=== PATIENT | male | born 1970 | race Caucasian/White ===

== ENCOUNTER 2018-05-24 15:32 | Inpatient (IN) | payer OTHER ==
[2018-05-24] MEDS ORDERED: ONDANSETRON 4 MG/2 ML VIAL IVP ONE (15:38)
[2018-05-24] MEDS ORDERED: NS 1,000 ML IV ONE (15:38)
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
[2018-05-24] MEDS ORDERED: IOHEXOL 300 mgI/ML (OMNIPAQUE) 150 ML BTL IV ONE (15:48)
[2018-05-24] MEDS ORDERED: TRANEXAMIC ACID 1,000 MG/10 ML VIAL ONE (16:17)
[2018-05-24] MEDS ORDERED: NS 100 ML BAG IV ONE (16:18)
[2018-05-24] MEDS ORDERED: TRANEXAMIC ACID 1,000 MG in NS 500 ML IV ONE (16:19)
[2018-05-24] MEDS ORDERED: TRANEXAMIC ACID 1,000 MG in NS 100 ML IV ONE (16:19)
[2018-05-24] MEDS ORDERED: levETIRAcetam 1000MG/NACL 100 ML IV ONE (16:26)
[2018-05-24] MEDS ORDERED: HYDROmorphONE/DILAUDID 1 MG/ML INJ IVP ONE ×2 (16:26→16:56)
[2018-05-24 16:32] LABS: INR 1.15 (0.83-1.16); PROTIME(PATIENT) 14.9 SEC (12.0-15.0)
[2018-05-24 16:50] LABS: PLATELET COUNT 260 10^3/uL (150-400)
[2018-05-24] MEDS ORDERED: HYDROmorphONE/DILAUDID 1 MG/ML INJ ONE (16:56)
[2018-05-24] MEDS ORDERED: NALOXONE HCL 0.4 MG/ML INJ IVP PRN (17:26)
[2018-05-24] MEDS ORDERED: ONDANSETRON 4 MG/2 ML VIAL IVP PRN (17:26)
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
[2018-05-24] MEDS: NS 1,000 ML IV SCH (19:15)
[2018-05-24] MEDS ORDERED: LIDOCAINE 1% 300 MG/30 ML SDV ONE (19:50)
[2018-05-24] MEDS ORDERED: fentaNYL 100 MCG/2 ML INJ ONE (19:53)
[2018-05-24] MEDS ORDERED: LIDOCAINE 1% 300 MG/30 ML SDV MISC ONE (20:00)
[2018-05-24] MEDS: levETIRAcetam 500MG/NACL 100 ML IV SCH (20:12)
[2018-05-24] MEDS ORDERED: fentaNYL 100 MCG/2 ML INJ IVP ONE (20:30)
[2018-05-24] MEDS: lamoTRIgine 100 MG TAB PO SCH (21:03)
[2018-05-24] MEDS: CYCLOBENZAPRINE 10 MG TAB PO SCH (21:03)
[2018-05-24] MEDS: LITHIUM CARBONATE 300 MG CAP PO SCH (21:03)
--- NOTE | 2018-05-24 21:05 | GOP ---
[f rep st] OPERATIVE REPORT DATE OF OPERATION: 05/24/2018 SURGEON: Keshawn Diez MD STEEPING PRESS OPERATOR: None. ANESTHESIA: Local with IV sedation. PREOPERATIVE DIAGNOSIS: Worsening right-sided pneumothorax. POSTOPERATIVE DIAGNOSIS: Worsening right-sided pneumothorax. PROCEDURE PERFORMED: Right chest tube thoracostomy placement. FINDINGS: Successful placement and expansion of right lung, small expiratory air leak. SPECIMENS: None. ESTIMATED BLOOD LOSS: 5 cc. DESCRIPTION OF PROCEDURE: The patient was greeted in the intensive care unit. After explaining the risks, benefits, and alternatives, consent was signed. A World Health Organization time-out was then performed. His right chest was prepped and draped in typical sterile fashion. I commenced the proc edure by creating a field block using 1% lidocaine. After successful anesthetization, I made an inci ralph inferior to the nipple line. I dissected superiorly and entered the chest at the approximate 6t h intercostal space. Once I entered the chest, I did receive a large markham of air. The [address] [address] tube was then placed within this and tunneled apically. It was attached to the skin with an inter rupted silk suture. It was attached to the Pleur-Evac with appropriate tidaling and a moderate expir atory air leak. A sterile dressing was placed. The patient tolerated the procedure well without any complications. A postplacement chest film showed adequate placement with appropriate expansion of t he right lung. DRAINS: Zamymy-ehcxo-Nolcbu straight chest tube to the right chest. /[id number]/MODL
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
[2018-05-24] MEDS: HYDROmorphONE/DILAUDID 1 MG/ML INJ IVP PRN ×2 (21:19→23:31)
[2018-05-25] MEDS: HYDROmorphONE/DILAUDID 1 MG/ML INJ IVP PRN ×5 (02:58→21:09)
[2018-05-25] MEDS: NS 1,000 ML IV SCH ×2 (02:59→11:43)
[2018-05-25 03:14] LABS: PLATELET COUNT 181 10^3/uL (150-400)
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
[2018-05-25] MEDS: CYCLOBENZAPRINE 10 MG TAB PO SCH ×3 (07:51→21:51)
[2018-05-25] MEDS: levETIRAcetam 500MG/NACL 100 ML IV SCH (07:51)
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
[2018-05-25] MEDS ORDERED: HYDROmorphONE/DILAUDID 2 MG/ML INJ ONE ×2 (12:46→18:44)
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
[2018-05-25] MEDS ORDERED: IOHEXOL 300 mgI/ML (OMNIPAQUE) 150 ML BTL IV ONE (13:19)
[2018-05-25] MEDS: PROPRANOLOL HCL 20 MG TAB PO SCH (14:47)
[2018-05-25] MEDS ORDERED: ceFAZolin 2 GM/DEXTROSE 100 ML IV ONE (15:00)
[2018-05-25] MEDS ORDERED: EPINEPHrine 1 MG/ML INJ ONE (15:16)
[2018-05-25] MEDS ORDERED: BUPIVACAINE 0.25% 30 ML SDV ONE (15:16)
[2018-05-25] MEDS ORDERED: CHLORHEXIDINE GLUC HIBICLENS 118 ML BTL TP ONE (15:17)
[2018-05-25] MEDS ORDERED: THROMBIN (BOVINE) 5,000 UNIT VIAL TP ONE (15:17)
[2018-05-25] MEDS ORDERED: CITRATE DEXTROSE SOLN 500 ML BAG ONE (15:18)
[2018-05-25] MEDS ORDERED: fentaNYL 100 MCG/2 ML INJ ONE ×2 (15:18→16:37)
[2018-05-25] MEDS ORDERED: BACITRACIN 50,000 UNITS/10 ML SYR IRR ONE (15:22)
[2018-05-25] MEDS ORDERED: HYDROmorphONE/DILAUDID 1 MG/ML INJ IVP ONE (15:45)
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
[2018-05-25] MEDS ORDERED: PROPOFOL/EMULSION 500 MG/50 ML BOTTLE IV ONE ×2 (16:37→19:06)
[2018-05-25] MEDS ORDERED: REMIFENTANIL HCL 1 MG VIAL ONE ×2 (16:37→19:06)
[2018-05-25] MEDS ORDERED: ALBUMIN 5% 250 ML BOTTLE IV ONE (17:20)
[2018-05-25] MEDS ORDERED: PHENYLEPHRINE HCL 100 MCG/ML SYR ONE (17:27)
[2018-05-25] MEDS ORDERED: DOPamine/DEXTROSE 400 MG/250 ML BAG IV ONE (17:38)
--- NOTE | 2018-05-25 17:51 | PDANEPAE ---
ANE History of Present Illness 48 yo for spinal fusion t4-8 ANE Past Medical History - Cardiovascular History Hx Hypertension: No Hx Arrhythmias: No Hx Chest Pain: No Hx Coronary Artery / Peripheral Vascular Disease: No Hx CHF / Valvular Disease: No Hx Palpitations: No - Pulmonary History Hx COPD: No Hx Asthma/Reactive Airway Disease: No Hx Recent Upper Respiratory Infection: No Hx Oxygen in Use at Home: No Hx Sleep Apnea: No Sleep Apnea Screening Result - Last Documented: Negative Pulmonary History Comment: R PTX - Endocrine History Hx Diabetes: No ANE Review of Systems Review of Systems: - Exercise capacity METS (RN): 5 METS ANE Patient History - Allergies Allergies/Adverse Reactions: codeine Allergy (Verified 05/24/18 19:46) Other-Enter Comments - Home Medications Home Medications: [place] Carbonate [[place] Carbonate Cap 300 mg (*)] 900 mg PO HS 05/24/18 [ Last Taken Unknown] Propranolol HCl [Inderal 20mg (*)] 10 - 20 mg PO DAILY 05/24/18 [Last Taken Unknown] Propranolol HCl [Inderal 20mg (*)] 20 mg PO HS 05/24/18 [Last Taken Unknown] Ziprasidone HCl 80 mg PO HS 05/24/18 [Last Taken Unknown] lamOTRIGine [Lamotrigine] 300 mg PO HS 05/24/18 [Last Taken Unknown] - NPO status NPO Since - Liquids (Date): 05/25/18 NPO Since - Liquids (Time): 00:00 NPO Since - Solids (Date): 05/25/18 NPO Since - Solids (Time): 00:00 - Anes Hx Anes Hx: no prior problems - Smoking Hx Smoking Status: Never smoked - Alcohol Use Alcohol Use: None ANE Labs/Vital Signs - Labs Result Diagrams: 05/25/18 03:00 05/25/18 03:00 - Vital Signs Blood Pressure: 114/79 Heart Rate: 77 Respiratory Rate: 16 O2 Sat (%): 95 Height: 5 ft 8 in Weight: 76 kg ANE Physical Exam - Airway Neck exam: C-collar in place Mallampati Score: Class 2 Mouth exam: normal dental/mouth exam - Pulmonary Pulmonary: no respiratory distress - Cardiovascular Cardiovascular: regular rate and rhythym - ASA Status ASA Status: II ANE Anesthesia Plan Anesthesia Plan: general endotracheal anesthesia
[2018-05-25] MEDS ORDERED: ONDANSETRON 4 MG/2 ML VIAL ONE (19:10)
[2018-05-25] MEDS ORDERED: ONDANSETRON 4 MG/2 ML VIAL IVP PRN (19:28)
[2018-05-25] MEDS ORDERED: HYDROmorphONE/DILAUDID 2 MG/ML INJ IVP PRN (19:28)
[2018-05-25] MEDS ORDERED: fentaNYL 100 MCG/2 ML INJ IVP PRN (19:28)
[2018-05-25] MEDS ORDERED: NALOXONE HCL 0.4 MG/ML INJ IVP PRN (19:28)
--- NOTE | 2018-05-25 20:04 | POSTOPPROG ---
Post Op Note Date of Operation: 05/25/18 Surgeon: Gordon Young Clinical Nurse Occupational Medicine: JEANMARIE Tilley PAC Anesthesia: GET(General Endotracheal) Pre-op Diagnosis: T6 unstable fx Post-op Diagnosis: T6 unstable fx Indication: T6 unstable fx, thoracic stenosis Procedure: T4-T8 PSF with T6 laminectomy Inf/Abcess present in the surg proc area at time of surgery?: No EBL: 50-100 Drains: Adolfo GREY Addendum - Addendum .: S: posterior spine pain O: NAD A&Ox3 MAEX4 5/ and equal A/P 48y/o male s/p T4-T8 PSF with T 6 laminectomy -Advance diet as tolerated -Continue hard cervical collar, no thoracic brace needed -SACHIN x1 -Post op xrays pending -Optimize pain management -Please notify NS with any change in neuro/motor exam
[2018-05-25] MEDS: LR 1,000 ML IV SCH (20:40)
[2018-05-25] MEDS ORDERED: ZIPRASIDONE HCL 40 MG CAP PO SCH (21:00)
[2018-05-25] MEDS ORDERED: PROPRANOLOL HCL 20 MG TAB PO SCH (21:00)
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
[2018-05-25] MEDS: levETIRAcetam 500 MG TAB PO SCH (21:50)
[2018-05-25] MEDS: oxyCODONE IR 5 MG TAB PO PRN (21:50)
[2018-05-25] MEDS: lamoTRIgine 100 MG TAB PO SCH (21:50)
[2018-05-25] MEDS: ceFAZolin 2 GM/DEXTROSE 100 ML IV SCH (21:51)
[2018-05-25] MEDS: LITHIUM CARBONATE 300 MG CAP PO SCH (21:52)
[2018-05-26] MEDS: LR 1,000 ML IV SCH (00:58)
[2018-05-26 05:19] LABS: PLATELET COUNT 138 10^3/uL (150-400)
[2018-05-26] MEDS: ceFAZolin 2 GM/DEXTROSE 100 ML IV SCH (06:00)
[2018-05-26] MEDS: oxyCODONE IR 5 MG TAB PO PRN (07:51)
[2018-05-26] MEDS: levETIRAcetam 500 MG TAB PO SCH ×2 (07:55→20:03)
[2018-05-26] MEDS: CYCLOBENZAPRINE 10 MG TAB PO SCH ×3 (07:56→21:56)
[2018-05-26] MEDS: PROPRANOLOL HCL 20 MG TAB PO SCH ×2 (08:07→23:32)
[2018-05-26] MEDS ORDERED: METHOCARBAMOL 750 MG TAB PO PRN (08:31)
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
[2018-05-26] MEDS ORDERED: LIDOCAINE 4%/MENTHOL 1% PATCH TD SCH (10:30)
--- NOTE | 2018-05-26 10:57 | TRAUMAPNT ---
Trauma Tertiary Progress Note New Findings: He is sedated this AM and his states that this is how he presents before manic episodes. A divergent gaze was also nothed by his . He is slow in his response to questioning. Assessment/Plan: PAD#2/POD#1 Assessment: Neurologic - evaluation clouded by hx of marika (with hx pre-marika sedated presentation) and head injury. CT reviewed - no evidence of orbital wall fx. Discussed with Dr. Young. Will minimize narcotic and add lidoderm/tylenol/toradol. Will obtain F/U Head CT today. Neck- Continue Hard collar for C5,67 T1,2,3 fx. Chest - Will get f/u CXR in AM, Continue Chest tube (80 cc out last shift), Meds adjusted, IS only to 200cc Plan: adjust meds ( done) Fu Head CT Work on pulmonary toilet Psych to see re: manic depressive issues Subjective: poorly interactive at this point Objective: Vital Signs Temp Pulse Resp BP Pulse Ox 36.9 C 63 13 118/64 100 05/25/18 23:52 05/26/18 09:00 05/26/18 09:00 05/26/18 09:00 05/26/18 09:00 Laboratory Results 05/26/18 04:15 05/26/18 04:15 05/25/18 05/26/18 05/27/18 05:59 05:59 05:59 Intake Total 2246 2031 Output Total 1225 3160 350 Balance 1021 -1129 -350 PT 14.9 SEC (12.0-15.0) 05/24/18 15:55 INR 1.15 (0.83-1.16) 05/24/18 15:55 - C-Spine Clearance Cervical Spine Cleared: No Physical Exam - Physical Exam General Appearance: other (sedated) EENT: other (divergent gaze when not focusing on commands) Neck: other (Hard collar in place) Respiratory: lungs clear, other (IS to only 200cc) Cardiac/Chest: regular rate, rhythm Abdomen: normal bowel sounds, non-tender, soft Male Genitalia: deferred Rectal: deferred Back: Normal inspection, Other (surgical dressing not removed) Skin: normal color Extremities: normal range of motion, non-tender, normal inspection Neuro/Psych: other (seems sedated but not obtunded) Time Spent w/Patient (minutes): 45
[2018-05-26] MEDS: PANTOPRAZOLE SODIUM 40 MG TAB PO SCH (11:42)
[2018-05-26] MEDS: KETOROLAC 30 MG/1 ML SDV IVP SCH ×3 (11:43→23:05)
[2018-05-26] MEDS: ACETAMINOPHEN 500 MG TAB PO SCH ×2 (14:58→21:56)
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
[2018-05-26] MEDS ORDERED: HALOPERIDOL LACT 5 MG/ML INJ IV ONE (19:30)
[2018-05-26] MEDS: lamoTRIgine 100 MG TAB PO SCH (20:03)
[2018-05-26] MEDS: LITHIUM CARBONATE 300 MG CAP PO SCH (20:03)
[2018-05-26] MEDS ORDERED: PATCH REMOVAL 1 EA PATCH TD SCH (21:00)
[2018-05-26] MEDS: LIDOCAINE 4%/MENTHOL 1% PATCH TD SCH (21:56)
[2018-05-26] MEDS ORDERED: OLANZapine DISINTEGR 5 MG TAB PO ONE (23:15)
[2018-05-27] MEDS: KETOROLAC 30 MG/1 ML SDV IVP SCH ×3 (05:44→17:07)
[2018-05-27] MEDS: ACETAMINOPHEN 500 MG TAB PO SCH ×3 (05:51→22:10)
[2018-05-27] MEDS: OLANZapine DISINTEGR 5 MG TAB PO PRN ×2 (06:08→22:39)
[2018-05-27 06:17] LABS: PLATELET COUNT 154 10^3/uL (150-400)
--- NOTE | 2018-05-27 07:01 | POSTANESTH ---
Post Anesthetic Evaluation Cardiovascular Status: Normal, Stable Respiratory Status: Normal, Stable Level of Consciousness/Mental Status: Can Participate in Eval Pain Control: Adequate, Prn Tx Ordered Nausea/Vomiting Control: Adequate, Prn Tx Ordered Complications Possibly Related to Anesthesia: None Noted
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
--- NOTE | 2018-05-27 09:16 | TRAUMAPN ---
Trauma Progress Note Assessment/Plan: PAD#2/POD#1 Assessment: Neurologic - evaluation clouded by hx of marika (with hx pre-marika sedated presentation) and head injury. CT reviewed - no evidence of orbital wall fx. Discussed with Dr. Young. Will minimize narcotic and add lidoderm/tylenol/toradol. Will obtain F/U Head CT today. Neck- Continue Hard collar for C5,67 T1,2,3 fx. Chest - Will get f/u CXR in AM, Continue Chest tube (80 cc out last shift), Meds adjusted, IS only to 200cc Plan: adjust meds ( done) Fu Head CT Work on pulmonary toilet Psych to see re: manic depressive issues PAD#3 POD#2 05/27/2018 Assessment: Manic/Depressive disorder - Dr. Costa' input appreciated. Will follow suggestions to avoid additional neuroleptics. Still confused this AM but not agitated. TBI- Follow up CT yesterday showed no changes. Low stim environment initiated. Neurologically stable. Will follow. Chest - Patient pulled chest tube last breaking sutures. Lung was up and output low so chest tube removed. CXR this AM shows right lung up without PTX. Left lung alvarado show more opacification. CT will be obtained to further characterize fluid/loculation. Still requires supplemental O2. Hope to be able to aspirate fluid to optimize pulmonary function. Pain control appears to be adequate. Still need to work on pulmonary toilet. GI- reports stool ( will confirm with nursing). DVT prophylaxis - up walking yesterday. plan to continue today. SCDs in place - retention last PM (700cc) crain replaced. Plan: CT chest - thoracentesis if appropriate Subjective: confused ( no change) but no complaints Objective: Vital Signs Temp Pulse Resp BP Pulse Ox 37.5 C 72 22 H 143/86 H 99 05/27/18 07:43 05/27/18 07:43 05/27/18 07:43 05/27/18 07:43 05/27/18 07:43 Laboratory Results 05/27/18 06:00 05/27/18 06:00 05/26/18 05/27/18 05/28/18 05:59 05:59 05:59 Intake Total 2036 1750 Output Total 2104 1864 Balance -1129 -114 PT 14.9 SEC (12.0-15.0) 05/24/18 15:55 INR 1.15 (0.83-1.16) 05/24/18 15:55 - C-Spine Clearance Cervical Spine Cleared: No Physical Exam - Physical Exam General Appearance: WD/WN, alert, no apparent distress Neck: other (hard collar in place) Respiratory: lungs clear, other (decreased breath sounds on left consistent with CXR findings) Abdomen: non-tender, soft, other (hypoactive bowel sounds) Male Genitalia: deferred Rectal: deferred Back: Normal inspection (dressings not disturbed) Skin: normal color, warm/dry Extremities: normal range of motion, non-tender, normal inspection Neuro/Psych: other (remains confused) Time Spent w/Patient (minutes): 45
[2018-05-27] MEDS: CYCLOBENZAPRINE 10 MG TAB PO SCH ×2 (09:37→15:06)
[2018-05-27] MEDS: PANTOPRAZOLE SODIUM 40 MG TAB PO SCH (09:37)
[2018-05-27] MEDS: levETIRAcetam 500 MG TAB PO SCH ×2 (09:37→20:55)
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
[2018-05-27] MEDS ORDERED: LACTULOSE 20 GM/30 ML UDCUP PO PRN (12:39)
[2018-05-27] MEDS ORDERED: MAGNESIUM HYDROXIDE 30 ML UDCUP PO PRN (12:39)
[2018-05-27] MEDS ORDERED: POLYETHYLENE GLYCOL 3350 17 GM PKT PO PRN (12:39)
[2018-05-27] MEDS ORDERED: BISACODYL 10 MG SUPP PR PRN (12:39)
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
[2018-05-27] MEDS: HYDROmorphONE/DILAUDID 1 MG/ML INJ IVP PRN (14:14)
--- NOTE | 2018-05-27 16:30 | SUROPNOTE ---
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 Signed consent was obtained and placed into chart prior to beginning the procedure. Time-Out: prior to the procedure, time-out was performed to verify patient's name, date of , correct procedure, correct side, correct site, correct patient position, correct radiographic data, and special equipment required. Pre-Op Dx: Pleural effusion Post-Op Dx: Pleural effusion Medications: 5 cc of 1% Lidocaine topically DESCRIPTION OF PROCEDURE: Hand hygiene was performed. The patient was placed upright with arms draped over a tray table. The patient was evaluated with ultrasound adequate fluid pocket was found. The area was marked. The posterior lateral space in between the 6th and 7th rib was marked and was cleaned with chlorhexidine for over 2 min, and then allowed to fully dry. Hand hygiene was again performed. The patient was sterilely prepped and draped, using full bed sterile sheets, and all present wore caps and masks; those performing the procedure also wore full body sterile garb and sterile gloves. Lidocaine was used to anesthetize the skin, subcutaneous tissue, superior aspect of the rib periosteum, and the parietal pleura in the identified area. Next, an 18 gauge needle with catheter was advanced until hemorrhagic pleural fluid was aspirated. The syringe was removed and a J tipped guide wire was advanced into the pleural space and the needle was removed. A 6 mm horizontal stab incision was made and the dilator was passed over the wire to dilate the subcutaneous tissue and parietal pleural. Subsequently the pigtail catheter was inserted to the 3rd black line and the guidewire was removed. The catheter was then sutured in place and dressing applied, and hooked up the the pleurovac. A CXR was ordered to confirm position. EBL: < 5 ml Complications: none; postop chest x-ray demonstrated evacuation of pleural effusion and adequate position of pigtail chest tube F/U: routine chest tube care S Kaiden Sawant MD #[id number] Pager [phone] [facility] [place], Division of Pulmonary and Critical Care Medicine
--- NOTE | 2018-05-27 17:09 | ASMTCMCOM ---
CM Note CM Note Notes: Spoke with patient's Joslyn who wants a referral to go to [facility] which is closer to their home. Both PT/OT are recommending inpatient rehab. A referral was sent. Joslyn is also concerned with the billing so CM will set up a meeting for her when she is ready. Joslyn was not ready to discuss the issues today. CM will follow. Date Signed: 05/27/2018 05:08 PM Electronically Signed By:Giana Downing LCSW
[2018-05-27] MEDS: lamoTRIgine 100 MG TAB PO SCH (20:53)
[2018-05-27] MEDS: SENNOSIDES/DOCUSATE SODIUM TAB PO SCH (20:54)
[2018-05-27] MEDS: LITHIUM CARBONATE 300 MG CAP PO SCH (20:55)
[2018-05-27] MEDS: PROPRANOLOL HCL 20 MG TAB PO SCH (20:55)
[2018-05-27] MEDS: LIDOCAINE 4%/MENTHOL 1% PATCH TD SCH (20:56)
[2018-05-27] MEDS ORDERED: QUEtiapine FUMARATE 50 MG TAB PO PRN (23:00)
[2018-05-27] MEDS ORDERED: OLANZapine 10 MG/2 ML VIAL IM ONE (23:15)
[2018-05-27] MEDS ORDERED: QUEtiapine FUMARATE 100 MG TAB PO SCH (23:30)
[2018-05-28] MEDS: KETOROLAC 30 MG/1 ML SDV IVP SCH ×4 (00:07→17:10)
[2018-05-28 04:56] LABS: PLATELET COUNT 183 10^3/uL (150-400)
[2018-05-28] MEDS: ACETAMINOPHEN 500 MG TAB PO SCH ×3 (07:34→20:12)
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
[2018-05-28] MEDS: SENNOSIDES/DOCUSATE SODIUM TAB PO SCH ×2 (08:45→20:08)
[2018-05-28] MEDS: levETIRAcetam 500 MG TAB PO SCH ×2 (08:46→20:07)
[2018-05-28] MEDS: PANTOPRAZOLE SODIUM 40 MG TAB PO SCH (08:46)
[2018-05-28] MEDS ORDERED: POTASSIUM CL 20 MEQ TAB PO ONE ×2 (09:08→11:15)
[2018-05-28] MEDS: HYDROmorphONE/DILAUDID 1 MG/ML INJ IVP PRN ×2 (09:26→22:23)
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
--- NOTE | 2018-05-28 11:48 | TRAUMAPN ---
Trauma Progress Note Assessment/Plan: PAD#2/POD#1 Assessment: Neurologic - evaluation clouded by hx of marika (with hx pre-marika sedated presentation) and head injury. CT reviewed - no evidence of orbital wall fx. Discussed with Dr. Young. Will minimize narcotic and add lidoderm/tylenol/toradol. Will obtain F/U Head CT today. Neck- Continue Hard collar for C5,67 T1,2,3 fx. Chest - Will get f/u CXR in AM, Continue Chest tube (80 cc out last shift), Meds adjusted, IS only to 200cc Plan: adjust meds ( done) Fu Head CT Work on pulmonary toilet Psych to see re: manic depressive issues PAD#3 POD#2 05/27/2018 Assessment: Manic/Depressive disorder - Dr. Costa' input appreciated. Will follow suggestions to avoid additional neuroleptics. Still confused this AM but not agitated. TBI- Follow up CT yesterday showed no changes. Low stim environment initiated. Neurologically stable. Will follow. Chest - Patient pulled chest tube last breaking sutures. Lung was up and output low so chest tube removed. CXR this AM shows right lung up without PTX. Left lung alvarado show more opacification. CT will be obtained to further characterize fluid/loculation. Still requires supplemental O2. Hope to be able to aspirate fluid to optimize pulmonary function. Pain control appears to be adequate. Still need to work on pulmonary toilet. GI- reports stool ( will confirm with nursing). DVT prophylaxis - up walking yesterday. plan to continue today. SCDs in place - retention last PM (700cc) crain replaced. Plan: CT chest - thoracentesis if appropriate 05/28/2018 PAD#4 POD#3 Assessment: Delirium beginning to resolve. Oriented to person and sister as well as place but not year. Zyprexa and Seroquel used last night to manage agitation. Restraints were required. Up walking in ICU hallway today. Left pleural effusion - more sero-sanguinous - will continue tube until < 150cc/ day or 75cc/shift, CXR looks better DVT prophylaxis - walking/SCDs Urinary retention - crain in for 24 hours - removed today, will consider adding Flomax Over all improving! Plan: Continue supportive care. Subjective: no complaints Objective: Vital Signs Temp Pulse Resp BP Pulse Ox 36.7 C 76 14 105/63 98 05/28/18 11:04 05/28/18 11:04 05/28/18 11:04 05/28/18 11:04 05/28/18 11:04 Laboratory Results 05/28/18 04:30 05/28/18 04:30 05/27/18 05/28/18 05/29/18 05:59 05:59 05:59 Intake Total 1750 900 Output Total 1864 2640 Balance -114 -1740 PT 14.9 SEC (12.0-15.0) 05/24/18 15:55 INR 1.15 (0.83-1.16) 05/24/18 15:55 - C-Spine Clearance Cervical Spine Cleared: No Physical Exam - Physical Exam General Appearance: alert, no apparent distress Neck: other (hard collar in place for C5,6,7 ) Respiratory: lungs clear, normal breath sounds, other (left pigtail chest tube functioning well - sero-sanguinous drainage) Cardiac/Chest: regular rate, rhythm Abdomen: normal bowel sounds, non-tender, soft Male Genitalia: deferred Rectal: deferred Back: Normal inspection Skin: normal color, warm/dry Neuro/Psych: normal mood/affect, other (oriented x2) Time Spent w/Patient (minutes): 35
--- NOTE | 2018-05-28 15:45 | ASMTCMCOM ---
SD Note CM Note Notes: Met with patient's , Joslyn to go over MDPOA paperwork. She would like to complete as soon as the patient is able. Left her 2 booklets so they can complete on both of them. Joslyn also signed a release of information so we can send for patient's records from [facility] for Dr. Costa. Release and request in patient's chart. CM will follow. Date Signed: 05/28/2018 03:44 PM Electronically Signed By:Giana Downing LCSW
[2018-05-28] MEDS: OLANZapine DISINTEGR 5 MG TAB PO PRN (17:34)
[2018-05-28] MEDS ORDERED: QUEtiapine FUMARATE 50 MG TAB PO PRN (19:48)
[2018-05-28] MEDS ORDERED: QUEtiapine FUMARATE 100 MG TAB PO SCH (19:48)
[2018-05-28] MEDS: LIDOCAINE 4%/MENTHOL 1% PATCH TD SCH (20:07)
[2018-05-28] MEDS: lamoTRIgine 100 MG TAB PO SCH ×2 (20:08→20:09)
[2018-05-28] MEDS: LITHIUM CARBONATE ER 450 MG TAB PO SCH (20:08)
[2018-05-28] MEDS: PROPRANOLOL HCL 20 MG TAB PO SCH (20:09)
[2018-05-29] MEDS: KETOROLAC 30 MG/1 ML SDV IVP SCH ×2 (03:15→06:34)
[2018-05-29] MEDS: ACETAMINOPHEN 500 MG TAB PO SCH ×3 (05:10→20:24)
[2018-05-29 06:17] LABS: PLATELET COUNT 226 10^3/uL (150-400)
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
[2018-05-29] MEDS: SENNOSIDES/DOCUSATE SODIUM TAB PO SCH ×2 (08:34→21:14)
[2018-05-29] MEDS: levETIRAcetam 500 MG TAB PO SCH ×2 (08:34→21:16)
[2018-05-29] MEDS: lamoTRIgine 100 MG TAB PO SCH ×2 (08:35→21:15)
[2018-05-29] MEDS: LITHIUM CARBONATE ER 450 MG TAB PO SCH ×2 (08:35→21:16)
[2018-05-29] MEDS: PANTOPRAZOLE SODIUM 40 MG TAB PO SCH (08:35)
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
[2018-05-29] MEDS: OLANZapine DISINTEGR 5 MG TAB PO PRN (09:35)
[2018-05-29] MEDS ORDERED: SUCROSE IV SCH (12:00)
[2018-05-29] MEDS ORDERED: NS IV SCH (12:00)
[2018-05-29] MEDS ORDERED: SODIUM FERRIC GLUCONAT IV SCH (12:00)
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
[2018-05-29] MEDS: ENOXAPARIN 40 MG/0.4 ML SYR SC SCH (12:49)
--- NOTE | 2018-05-29 16:29 | ASMTCMCOM ---
CM Note CM Note Notes: [facility] called back at 4:17 PM to say they would come to see the patient on Friday. Their medical team just reviewed the case and the insurance coverage was just verified. Spoke with the patient's to let her know.CM will follow. Date Signed: 05/29/2018 04:28 PM Electronically Signed By:Giana Downing LCSW
[2018-05-29] MEDS: traMADol 50 MG TAB PO PRN (17:26)
[2018-05-29] MEDS: HYDROmorphONE/DILAUDID 4 MG TAB PO PRN (20:24)
[2018-05-29] MEDS: QUEtiapine FUMARATE 300 MG TAB PO SCH (21:16)
[2018-05-29] MEDS: PROPRANOLOL HCL 20 MG TAB PO SCH (21:17)
[2018-05-29] MEDS: LIDOCAINE 4%/MENTHOL 1% PATCH TD SCH (21:20)
[2018-05-30] MEDS: OLANZapine 5 MG TAB PO PRN ×2 (00:01→21:02)
[2018-05-30] MEDS: ACETAMINOPHEN 500 MG TAB PO SCH ×2 (06:16→15:48)
[2018-05-30 07:02] LABS: PLATELET COUNT 315 10^3/uL (150-400)
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
[2018-05-30] MEDS: SENNOSIDES/DOCUSATE SODIUM TAB PO SCH ×2 (09:54→21:03)
[2018-05-30] MEDS: traMADol 50 MG TAB PO PRN ×2 (09:54→15:48)
[2018-05-30] MEDS: PANTOPRAZOLE SODIUM 40 MG TAB PO SCH (09:54)
[2018-05-30] MEDS: LITHIUM CARBONATE ER 450 MG TAB PO SCH ×2 (09:54→21:03)
[2018-05-30] MEDS: ENOXAPARIN 40 MG/0.4 ML SYR SC SCH (09:54)
[2018-05-30] MEDS: levETIRAcetam 500 MG TAB PO SCH ×2 (09:55→21:02)
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
[2018-05-30] MEDS: HYDROmorphONE/DILAUDID 4 MG TAB PO PRN (20:04)
[2018-05-30] MEDS: lamoTRIgine 100 MG TAB PO SCH (21:02)
[2018-05-30] MEDS: QUEtiapine FUMARATE 300 MG TAB PO SCH (21:02)
[2018-05-30] MEDS: PROPRANOLOL HCL 20 MG TAB PO SCH (21:03)
[2018-05-30] MEDS: LIDOCAINE 4%/MENTHOL 1% PATCH TD SCH (21:13)
[2018-05-31] MEDS: ACETAMINOPHEN 500 MG TAB PO SCH ×4 (00:48→19:17)
[2018-05-31] MEDS: OLANZapine 5 MG TAB PO PRN (03:15)
[2018-05-31] MEDS: traMADol 50 MG TAB PO PRN ×3 (04:45→21:41)
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
[2018-05-31] MEDS: LITHIUM CARBONATE ER 450 MG TAB PO SCH ×2 (09:04→21:38)
[2018-05-31] MEDS: lamoTRIgine 100 MG TAB PO SCH ×2 (09:04→21:09)
[2018-05-31] MEDS: SENNOSIDES/DOCUSATE SODIUM TAB PO SCH ×2 (09:04→21:09)
[2018-05-31] MEDS: PANTOPRAZOLE SODIUM 40 MG TAB PO SCH (09:04)
[2018-05-31] MEDS: ENOXAPARIN 40 MG/0.4 ML SYR SC SCH (09:05)
[2018-05-31] MEDS: levETIRAcetam 500 MG TAB PO SCH ×2 (09:05→21:09)
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
--- NOTE | 2018-05-31 09:26 | ASMTCMCOM ---
CM Note CM Note Notes: [facility] is to come screen pt on Friday, CM submit updates via [employer]. CM to follow. Plan: [facility], pending acceptance. Date Signed: 05/31/2018 09:26 AM Electronically Signed By:BOOKER Freeman
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
[2018-05-31] MEDS: LIDOCAINE 4%/MENTHOL 1% PATCH TD SCH (21:10)
[2018-05-31] MEDS: PROPRANOLOL HCL 20 MG TAB PO SCH (21:38)
[2018-05-31] MEDS: QUEtiapine FUMARATE 300 MG TAB PO SCH (21:39)
[2018-05-31] MEDS ORDERED: OLANZapine 2.5 MG TAB PO PRN (22:00)
[2018-06-01] MEDS: HYDROmorphONE/DILAUDID 4 MG TAB PO PRN (00:17)
[2018-06-01] MEDS: ACETAMINOPHEN 500 MG TAB PO SCH ×3 (05:17→22:51)
[2018-06-01] MEDS: LITHIUM CARBONATE ER 450 MG TAB PO SCH ×3 (07:10→20:05)
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
[2018-06-01] MEDS: traMADol 50 MG TAB PO PRN ×2 (09:57→20:04)
[2018-06-01] MEDS: SENNOSIDES/DOCUSATE SODIUM TAB PO SCH ×2 (09:57→20:04)
[2018-06-01] MEDS: PANTOPRAZOLE SODIUM 40 MG TAB PO SCH (09:57)
[2018-06-01] MEDS: ENOXAPARIN 40 MG/0.4 ML SYR SC SCH (09:57)
[2018-06-01] MEDS: lamoTRIgine 100 MG TAB PO SCH ×2 (09:57→20:05)
[2018-06-01 13:33] LABS: PLATELET COUNT 432 10^3/uL (150-400)
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
--- NOTE | 2018-06-01 15:20 | ASMTCMCOM ---
CM Note CM Note Notes: Sohail from [facility] stopped by and evaluated pt. [facility] has accepted pt and they have a bed available on . Shashank will start getting auth. CM spoke to pts Joslyn (P#: [phone]) and confirmed the plans. CM to follow. Plan: [facility] Date Signed: 06/01/2018 03:20 PM Electronically Signed By:BOOKER Cabrera
[2018-06-01] MEDS: QUEtiapine FUMARATE 300 MG TAB PO SCH (20:05)
[2018-06-01] MEDS: PROPRANOLOL HCL 20 MG TAB PO SCH (20:06)
[2018-06-01] MEDS: LIDOCAINE 4%/MENTHOL 1% PATCH TD SCH (20:15)
[2018-06-02 05:27] LABS: PLATELET COUNT 415 10^3/uL (150-400)
[2018-06-02] MEDS: ACETAMINOPHEN 500 MG TAB PO SCH ×3 (06:00→22:53)
[2018-06-02] MEDS: traMADol 50 MG TAB PO PRN ×2 (06:02→20:30)
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
[2018-06-02] MEDS: ENOXAPARIN 40 MG/0.4 ML SYR SC SCH (09:58)
[2018-06-02] MEDS: lamoTRIgine 100 MG TAB PO SCH ×2 (09:59→20:33)
[2018-06-02] MEDS: LITHIUM CARBONATE ER 450 MG TAB PO SCH ×2 (09:59→20:31)
[2018-06-02] MEDS: PANTOPRAZOLE SODIUM 40 MG TAB PO SCH (09:59)
[2018-06-02] MEDS: SENNOSIDES/DOCUSATE SODIUM TAB PO SCH ×2 (10:00→20:31)
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
[2018-06-02] MEDS ORDERED: QUEtiapine FUMARATE 100 MG TAB PO PRN (14:01)
[2018-06-02] MEDS: PROPRANOLOL HCL 20 MG TAB PO SCH (20:31)
[2018-06-02] MEDS: QUEtiapine FUMARATE 300 MG TAB PO SCH (20:33)
[2018-06-02] MEDS: LIDOCAINE 4%/MENTHOL 1% PATCH TD SCH (20:34)
[2018-06-03] MEDS: traMADol 50 MG TAB PO PRN (06:10)
[2018-06-03] MEDS: ACETAMINOPHEN 500 MG TAB PO SCH ×4 (06:10→22:27)
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
[2018-06-03] MEDS: lamoTRIgine 100 MG TAB PO SCH ×2 (07:51→20:50)
[2018-06-03] MEDS: PANTOPRAZOLE SODIUM 40 MG TAB PO SCH (07:51)
[2018-06-03] MEDS: LITHIUM CARBONATE ER 450 MG TAB PO SCH ×2 (07:52→20:51)
[2018-06-03] MEDS: ENOXAPARIN 40 MG/0.4 ML SYR SC SCH (07:53)
[2018-06-03] MEDS: SENNOSIDES/DOCUSATE SODIUM TAB PO SCH ×2 (09:23→20:50)
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
[2018-06-03 15:25] LABS: PLATELET COUNT 503 10^3/uL (150-400)
--- NOTE | 2018-06-03 15:42 | ASMTCMCOM ---
CM Note CM Note Notes: Spoke with Sohail at [facility] today, they have insurance authorization and the plan is still to accept pt tomorrow. Sohail reports the Shashank MD is concerned about pt hematocrit, updated labs are obtained and forwarded to [facility] in [employer]. Sohail also asked for psych consult notes and those were print-attached in [employer] since there is so much content in the body of the [employer] referral. Pt still has a sitter and Sohail reports this is fine, pt does NOT need to be off a sitter and pt will have 1:1 at [facility]. Disc obtained today of images to go w pt at d/c. Report to nurse station tomorrow is [phone]. [facility] stretcher transport pre-arranged for 1200 tomorrow. [facility] needs pt there by 1400. Pt Joslyn was updated. D/c plan of care: [facility] tomorrow. Date Signed: 06/03/2018 03:42 PM Electronically Signed By:ROSA Workman
[2018-06-03] MEDS ORDERED: METOPROLOL TARTRATE 25 MG TAB PO ONE (19:30)
[2018-06-03] MEDS: QUEtiapine FUMARATE 300 MG TAB PO SCH (20:51)
[2018-06-03] MEDS: clonazePAM 0.5 MG TAB PO SCH ×2 (20:51→21:06)
[2018-06-03] MEDS: PROPRANOLOL HCL 20 MG TAB PO SCH (20:51)
[2018-06-03] MEDS: LIDOCAINE 4%/MENTHOL 1% PATCH TD SCH (20:52)
--- NOTE | 2018-06-03 22:31 | PDCONSULT ---
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 States he was evaluated by [facility] and will plan to txf there 06/04. Tolerating [place] and Lamictal change to BID dosing from HS without problems. Continued same total daily dose. Slept through night with increased Seroquel to 300mg hs, except states he did not sleep well last night. Pt expressed surprise at being off Geodon (Ziprasidone) although last week stated pt had tapered self off and was not taking this for a few months. Started on Seroquel last week for insomnia and what seemed to be emerging marika symptoms according to , but symptoms were not clearly distinguishable from mental status changes post TBI and post op/anesthesia/narcotics last week. Regardless, pt was at increased risk for manic episode emerging in context of acute stressor and 2d insomnia. Pt does believe he needs to continue on meds for BMD, especially [place]. Just hopes he doesn't have to stay on as many. Asked about Seroquel- was educated on this med including metabolic risks of hyperlipidemia and DM, and need for f/u of lipids and glc. Recommended continuing this for now given his improvement since last week, and will need f/ u with outpt psychiatry after d/c. Discussed risks of marika and resulting adverse imipact on his rehab/recovery if mental health issues not stabilized. Pt seemed to express understanding. Has concerns about anxiety, and does feel THC helpful and not sure he could commit to abstinence. Asked about klonopin as well. advised against due to his TBI and risk of adverse cognitive effects. Does note some cognitive changes since TBI, but improved since last week. Cognition not formally assessed during this interview. States he has not established with psychiatry since move to [place] 5 mo ago but has therapist. MSE: cooperative, calm, sitting in hosp bed w/TV on. good eye contact, nml speech rate/vol, not pressured. wearing C-collar. nml psychom activity. affect restricted/flattened, mood a little down about current situation, but denies feeling predominantly depressed. Denies any psychotic sxs, no ah/vh or any si/ hi. Thoughts with linear responses to questions and seem reality-based. Expresses insight into having BMD and need for medications, but hopes to not need many meds. A&Ox3 and to situation. Does c/o some thinking/memory difficulties since TBI but feels more clear than last week. IMP: acute encephalopathy, resolved Bipolar Mood d/o, unspecified Neurocognitive disorder, unspecified, due to traumatic brain injury REC: -cont home meds of lithium 900mg and lamictal 300mg and propranolol. Currently dosed bid as [place] ER 450mg bid, Lamictal 100/200, and propranolol 10/20. states propranolol for side effects. propranolol can help with any tremor due to Li (none noted), internal restlessness/akathisia, and anxiety. -Seroquel uptitrated to 300mg HS for bipolar and insomnia. Added 100mg qhs as prn for sleep. May need increase to 400mg. Could add 25-50mg bid prn for anxiety which would and limit polypharm as pt focuses on rehab -Since already scheduled for blood draw in AM, will add fasting lipids and chem panel only for baseline as pt continues on this medication. Informed pt that Seroquel can have adverse metabolic effects including hyperlipidemia and hyperglycemia, and although not an acute issue, will add for baseline labs . -Continue to f/u [place] level, has been stable 0.7-0.9, but monitor for increasing level on NSAIDS. With possible increased sensitivity to Li+ already following TBI, Li+ level could be further affected by NSAIDS, dehydration among others. Will add [place] level to already scheduled lab draw. -Avoid NSAIDS and use alternate pain medication if possible as NSAIDS can increase [place] concentration which then can cause [place] toxicity with associated AMS/delirium. -Recommend AVOID Benzodiazepines given recent TBI and risk of adverse cognitive effects, and pt also reporting being aware of some cognitive issues. Per RN, has received Klonopin 1mg this evening and this is new med. Due to risks, and long t1/2, will d/c for now and discuss concerns with primary team in AM. If need to continue with benzodiazepine, would recommend judicious use of Lorazepam at 0.5-1mg dosing, which has shorter t1/2. However, better medications available to use for anxiety in this pt with BMD and TBI, also with hx of EtOH use- could try low dose Seroquel 12.5mg- 25mg prn for anxiety (limited by sedation, up to 50mg prn) or low dose Propranolol 10 -20mg prn, since already on these meds, and this would avoid polypharm. If for insomnia, would use Seroquel 100mg prn, especially since reports insomnia is a trigger if not an early symptom of emerging marika. Tolerating Seroquel 300mg HS, consider increase to 400mg hs. -Will cont to follow
[2018-06-04] MEDS: ACETAMINOPHEN 500 MG TAB PO SCH (05:38)
[2018-06-04 06:07] LABS: PLATELET COUNT 495 10^3/uL (150-400)
[2018-06-04 07:30] VITALS: BP 134/89
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
[2018-06-04] MEDS: PANTOPRAZOLE SODIUM 40 MG TAB PO SCH (08:55)
[2018-06-04] MEDS: lamoTRIgine 100 MG TAB PO SCH (08:55)
[2018-06-04] MEDS: ENOXAPARIN 40 MG/0.4 ML SYR SC SCH (08:55)
[2018-06-04] MEDS: LITHIUM CARBONATE ER 450 MG TAB PO SCH ×2 (09:03→10:42)
[2018-06-04] MEDS: SENNOSIDES/DOCUSATE SODIUM TAB PO SCH (09:04)
[2018-06-04] MEDS ORDERED: QUEtiapine FUMARATE 200 MG TAB PO SCH (10:50)
--- NOTE | 2018-06-04 10:54 | PDIAF ---
- Diagnosis Code Status: Full Code - Medication Management Discharge Medications: electronically signed and located in the Home Medication List. - Orders Services needed: Registered Nurse, Physical Therapy, Occupational Therapy (Pt will also need to be followed by psychiatry regularly) Diet Recommendation: no restrictions on diet Diet Texture: Regular Texture Diet Additional Instructions: HARD CERVICAL COLLAR ON AROUND THE CLOCK - MENDY COLLAR OKAY FOR SHOWERING. GAUZE CAN BE PLACED OVER INCISION TO PREVENT ABRASION - S/P T4-8 POSTERIOR INSTRUMENTATION AND FUSION Take stitches out after 06/06. - Follow Up Care Current Providers and Referrals: Gordon Young MD [Medical Doctor] - (Follow-up in 2-3 weeks with ) James Gonzalez MD [Medical Doctor] - follow up in 1 week Patient,NotPresent [Unknown] - As per Instructions
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
--- NOTE | 2018-06-04 13:59 | ASMTLACE ---
[facility] Length of stay for Answers: 7-13 days current admission Acuity / Level of Answers: Yes Care: Did the patient have an inpatient admission? # of Emergency department Answers: 1-2 visits in the last 6 months Social determinants Answers: Mental health diagnosis (anxiety, depression, pers onality disorders, etc.) Score: 12 Date Signed: 06/04/2018 01:58 PM Electronically Signed By:ROSA Workman
--- NOTE | 2018-06-04 14:05 | ASMTCMCOM ---
CM Note CM Note Notes: Pt medically stable for d/c to [facility] inpatient rehab. Orders and other updates sent in Allscripts and copy sent with pt along with disc of images. [facility] transport requests PCS (even though not needed) and this CM completed one so pt can get to [facility] timely but forgot to make copy for chart. RACHEL Luo to call report. Pt notified pt d/c. Date Signed: 06/04/2018 02:04 PM Electronically Signed By:ROSA Workman
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
== END 2018-06-04 12:09 | DRG 958 ==
LOC: EDUNIT# → F2N 18:18 → F3N 05-31 14:41
PROVIDERS: ADMIT Surgery; ATTEND Surgery
PROC: 0B9K30Z Drainage of Right Lung with Drainage Device, Percutaneous Approach (ICD-10-PCS; 2018-05-24)
PROC: 0RG7071 Fusion of 2 to 7 Thoracic Vertebral Joints with Autologous Tissue Substitute, Posterior Approach, Posterior Column, Open Approach (ICD-10-PCS; principal; 2018-05-25 16:30)
PROC: 0RG70AJ Fusion of 2 to 7 Thoracic Vertebral Joints with Interbody Fusion Device, Posterior Approach, Anterior Column, Open Approach (ICD-10-PCS; principal; 2018-05-25 16:30)
PROC: 4A1004G Monitoring of Central Nervous Electrical Activity, Intraoperative, Open Approach (ICD-10-PCS; principal; 2018-05-25 16:30)
PROC: 00N20ZZ Release Dura Mater, Open Approach (ICD-10-PCS; principal; 2018-05-25 16:30)
PROC: 0W9B30Z Drainage of Left Pleural Cavity with Drainage Device, Percutaneous Approach (ICD-10-PCS; 2018-05-27)
DX: S22.051A Stable burst fracture of T5-T6 vertebra, initial encounter for closed fracture (principal); S06.6X0A Traumatic subarachnoid hemorrhage without loss of consciousness, initial encounter; S27.329A Contusion of lung, unspecified, initial encounter; S22.43XA Multiple fractures of ribs, bilateral, initial encounter for closed fracture; S22.20XA Unspecified fracture of sternum, initial encounter for closed fracture; S27.0XXA Traumatic pneumothorax, initial encounter; N17.9 Acute kidney failure, unspecified; G93.49 Other encephalopathy; F31.89 Other bipolar disorder; S22.068A Other fracture of T7-T8 thoracic vertebra, initial encounter for closed fracture; S22.078A Other fracture of T9-T10 vertebra, initial encounter for closed fracture; V00.322A Snow-skier colliding with stationary object, initial encounter; Y92.830 Public park as the place of occurrence of the external cause; R33.9 Retention of urine, unspecified
CPT/HCPCS: 80305; 82435-PO; 82565-PO; 82947-PO; 84132-PO; 84295-PO; 84520-PO; 85014-ER; 92507-GN; 92523-GN; 96374; 97110-GP; 97116-GP; 97162-GP; 97167-GO; 97530-GO; 97530-GP; 97535-GO; C1713; G0480; J0171; J0690; J1170; J1265; J1630; J1650; J1885; J1953; J2370; J2405; J2704; J2916; J3010; P9041; Q9967